=== PATIENT | male | born 1945 | race Asian ===

== ENCOUNTER 2024-09-04 10:42 | Inpatient (IN) | payer OTHER ==
[~2024-09-04] VITALS: Ht 170.2 cm; Wt 68.5 kg
[2024-09-04 11:02] LABS: BASOPHILS % 0.5 % (0.0-2.0); EOSINOPHILS % 3.0 % (0.0-5.0); HEMATOCRIT. 31.7 % (42.0-52.0); HEMOGLOBIN. 10.7 g/dL (14.0-18.0); LYMPHOCYTES % 36.3 % (20.0-50.0); MEAN PLATELET VOLUME 7.4 fl (7.4-10.4); MONOCYTES % 9.2 % (2.0-8.0); NEUTROPHILS % 51.0 % (40.0-76.0); PLATELET 173 x1000/uL (130-400); RED BLOOD CELL COUNT 3.43 mill/uL (4.7-6.1); RED CELL DISTRIBUTION WIDTH 15.9 % (11.6-14.6)
[2024-09-04 11:11] LABS: INR 1.0
[2024-09-04 11:24] LABS: TROPONIN I HIGH SENSITIVITY 8 ng/L (3.0-53)
[2024-09-04 11:25] LABS: CREATININE 1.3 mg/dL (0.6-1.3); UREA NITROGEN BLOOD 12 mg/dL (9-23)
[2024-09-04 11:26] LABS: ASPARTATE AMINOTRANSFERASE 21 IU/L (<34)
[2024-09-04 11:27] LABS: BILIRUBIN DIRECT 0.2 mg/dL (<=3.0); BILIRUBIN TOTAL 0.6 mg/dL (0.1-1.0); PROTEIN TOTAL 6.3 g/dL (6.0-8.3)
[2024-09-04] MEDS: IOHEXOL-350 100 ML BOTTLE ONE (11:44)
[2024-09-04 13:22] LABS: TROPONIN I HIGH SENSITIVITY 10 ng/L (3.0-53)
[2024-09-04] MEDS ORDERED: ONDANSETRON HCL 4MG/2ML INJ IV PRN (14:15)
[2024-09-04] MEDS ORDERED: ACETAMINOPHEN 325MG TABLET PO PRN (14:15)
[2024-09-04] MEDS ORDERED: HYDROCODONE/ACETAMINOPHEN 5/325MG TABLET PO PRN (14:15)
[2024-09-04] MEDS: SODIUM CHLORIDE 0.9% 1,000 ML IV SCH (14:46)
[2024-09-04] MEDS: ENOXAPARIN 40MG/0.4ML SYR SUBCUT SCH (15:17)
[2024-09-04 16:00] VITALS: BP 167/85; PULSE 68; RESP 18; TEMP 36.6; O2SAT 100
[2024-09-04 16:15] VITALS: BP 155/74; PULSE 60; RESP 18; TEMP 36.14
[2024-09-04] MEDS ORDERED: ATOR20TA65 PO (16:57)
[2024-09-04] MEDS ORDERED: TICA90TA PO (16:59)
[2024-09-04] MEDS ORDERED: MIRA50TA PO (16:59)
[2024-09-04] MEDS ORDERED: PANT40TA51 PO (17:00)
[2024-09-04] MEDS ORDERED: RANO500T6 PO (17:01)
[2024-09-04] MEDS ORDERED: SILO8CAP8 PO (17:02)
[2024-09-04] MEDS ORDERED: DUTA0.5C37 PO (17:03)
[2024-09-04] MEDS ORDERED: NITR6.5C19 PO (17:04)
[2024-09-04] MEDS ORDERED: NALOXONE HCL 0.4MG/ML VIAL IV PRN (18:00)
[2024-09-04] MEDS ORDERED: *PATIENT'S OWN MEDICATION STORAGE XX SCH (18:00)
[2024-09-04 20:00] VITALS: BP 149/80; PULSE 58; RESP 16; TEMP 35.6; O2SAT 100
[2024-09-04] MEDS: RANOLAZINE 500 MG TAB.SR.12H PO SCH (20:32)
[2024-09-04] MEDS: ATORVASTATIN CALCIUM 40MG TABLET PO SCH (20:32)
[2024-09-04] MEDS: TICAGRELOR 90 MG TABLET PO SCH (20:32)
[2024-09-04] MEDS: IPRATROPIUM/ALBUTEROL 0.5-3(2.5)MG/3ML NEB NEB PRN (20:53)
[2024-09-04 20:59] VITALS: PULSE 99; RESP 20; O2SAT 99
[2024-09-05] VITALS (9 sets, daily range): BP systolic 110–167; BP diastolic 57–81; PULSE 57–86; RESP 16–18; TEMP 36.1–36.8; O2SAT 97–100
[2024-09-05] MEDS: HYDRALAZINE 20MG/ML VIAL IV PRN (00:35)
[2024-09-05 03:47] LABS: TROPONIN I HIGH SENSITIVITY 12 ng/L (3.0-53)
[2024-09-05] MEDS: ASPIRIN 81MG TABLET PO SCH (09:49)
[2024-09-05] MEDS: PANTOPRAZOLE SODIUM 40 MG/VIAL IV SCH (09:50)
[2024-09-05] MEDS: DOCUSATE SODIUM 100MG CAPSULE PO SCH (09:56)
[2024-09-05 11:17] LABS: BASOPHILS % 0.2 % (0.0-2.0); EOSINOPHILS % 1.7 % (0.0-5.0); HEMATOCRIT. 34.1 % (42.0-52.0); HEMOGLOBIN. 11.3 g/dL (14.0-18.0); LYMPHOCYTES % 21.2 % (20.0-50.0); MEAN PLATELET VOLUME 7.6 fl (7.4-10.4); MONOCYTES % 8.3 % (2.0-8.0); NEUTROPHILS % 68.6 % (40.0-76.0); PLATELET 181 x1000/uL (130-400); RED BLOOD CELL COUNT 3.65 mill/uL (4.7-6.1); RED CELL DISTRIBUTION WIDTH 16.5 % (11.6-14.6)
[2024-09-05 11:33] LABS: CREATININE 1.2 mg/dL (0.6-1.3); TRIGLYCERIDE 90.0 mg/dL (0-150); TROPONIN I HIGH SENSITIVITY 18.0 ng/L (3.0-53); UREA NITROGEN BLOOD 10.0 mg/dL (9-23)
[2024-09-05 11:34] LABS: LDL CHOLESTEROL 65.0 mg/dL (5-100)
== END 2024-09-05 20:00 | disposition home or self-care (01) | DRG 641 ==
LOC: ER 10:42 → EDBD 10:42 → 5WST 12:24
PROVIDERS: ADMIT Internal Medicine; ATTEND Internal Medicine
DX: E86.0 Dehydration (principal); I25.10 Atherosclerotic heart disease of native coronary artery without angina pectoris; I95.9 Hypotension, unspecified; R00.1 Bradycardia, unspecified; D64.9 Anemia, unspecified; I51.7 Cardiomegaly; Z95.1 Presence of aortocoronary bypass graft; Z79.899 Other long term (current) drug therapy
CPT/HCPCS: 36415; 70496; 70498; 71045; 71275; 80048; 80061; 80076; 82962; 83036; 84443; 84484; 85025; 93005; 93306; 94070; 94640; 94760; 99291; J0360; J1650; J2470; J7030; Q9967; J8499